=== PATIENT | female | born 1985 | race Caucasian/White ===

== ENCOUNTER 2017-05-20 11:40 | Emergency (ER) | payer OTHER ==
[~2017-05-20] VITALS: Ht 170.2 cm; Wt 91.2 kg
[~2017-05-20 11:40] MED LIST: ACET325 PO; ALBU90OI INH; ALBU90OI6 INH; ALBU90OI61 INH; AMOX500 PO; AMPDEX10; AMPDEX10CR; ARIP10; AZIT250 PO; Acular3 ML LEFTEYE; Advil200 M1 PO; CALCAVITDA; CEPH500 PO; CRUTCH3 USE; CYCL10; Cleocin HCl300 MG PO; DOXY100 PO; FLUSAL1005; FOLI1 PO; FOLI400 PO; HYDGUAL120 PO; HYDPAM25 PO; IBUP600 PO; IBUP800 PO; Keflex500 MG PO; LAMO100 PO; METPHE20 PO; METR70GEL VAG; MORP30ER; MULVITMINE PO; MUPI2TO TOP; NAPR500 PO; NICO14TP TOP; OXYACE5T PO; OXYC10ER; OXYC5 PO; PRED20 PO; PRODEXEL PO; Percocet 5-3251 EACH PO; Prednisone20 MG PO; QUET100 PO; RANI150 PO; RXERYTOPTH OS; RXHYDGUAS PO; RXOXYACE PO; SPACE CHAMBER1 EACH MC; SULTRIDS PO; SULTRISS PO; TOPI100; TOPI25; TRAM50 PO; VALA500 PO; VENL75; Verotin-Gr Cap1 EACH PO; Zithromax250 MG PO
[2017-05-20 13:08] LABS: Influenza A Negative (NEGATIVE); Influenza B Negative (NEGATIVE)
[2017-05-20] MEDS ORDERED: Flonase 0.05% N16 GM (13:32)
[2017-05-20] MEDS ORDERED: Pseudoephedrine30 MG PO (13:33)
[2017-05-20] MEDS ORDERED: Zithromax250 MG PO (13:33)
[2018-02-26] MEDS ORDERED: Zanaflex4 MG PO (18:01)
[2018-02-26] MEDS ORDERED: METPHE20 PO (18:01)
[2018-02-26] MEDS ORDERED: BUPR150ER PO (18:01)
[2018-02-26] MEDS ORDERED: LAMO100 PO ×2 (18:01→18:02)
[2018-02-26] MEDS ORDERED: LAMO25 PO (18:02)
[2018-02-26] MEDS ORDERED: Percocet 10-321 EACH PO (18:36)
[2018-02-26] MEDS ORDERED: BACI500TO TOP (18:36)
[2018-02-26] MEDS ORDERED: IBUP800 PO (18:36)
[2018-03-01] MEDS ORDERED: Percocet 5-3251 EACH PO (19:18)
== END 2017-05-20 13:42 | disposition home or self-care (01) ==
LOC: ER 11:40
PROVIDERS: Physician Assistant
DX: R05 Cough (principal); R09.81 Nasal congestion; J45.909 Unspecified asthma, uncomplicated; F31.9 Bipolar disorder, unspecified; F90.9 Attention-deficit hyperactivity disorder, unspecified type; G40.909 Epilepsy, unspecified, not intractable, without status epilepticus; Z88.8 Allergy status to other drugs, medicaments and biological substances; Z79.899 Other long term (current) drug therapy; Z87.891 Personal history of nicotine dependence
CPT/HCPCS: 87804; 99283

== ENCOUNTER → 2017-06-13 | Outpatient (CLI) | payer OTHER ==
[~2017-06-13] MED LIST changes: +BACI500TO TOP; +BUPR150ER PO; +Flonase 0.05% N16 GM; +IBUP400 PO; +LAMO25 PO; +Percocet 10-321 EACH PO; +Pseudoephedrine30 MG PO; +Zanaflex4 MG PO
== END ==
LOC: LAB 14:44
DX: Z33.1 Pregnant state, incidental (principal)
CPT/HCPCS: 87081; 87653

== ENCOUNTER 2017-07-02 05:15 | Inpatient (IN) | payer OTHER ==
[~2017-07-02] VITALS: Ht 167.6 cm; Wt 93.2 kg
[~2017-07-02 05:15] MED LIST changes: -BACI500TO TOP; -BUPR150ER PO; -IBUP400 PO; -LAMO25 PO; -Percocet 10-321 EACH PO; -Zanaflex4 MG PO
[2017-07-02] MEDS ORDERED: RANI150 PO (05:37)
[2017-07-02 05:43] LABS: BASOPHILS ABSOLUTE AUTO 0.04 K/mm3 (0.00-0.23); BASOPHILS PERCENT AUTO 0 % (0-2); EOSINOPHILS ABSOLUTE AUTO 0.22 K/mm3 (0.00-0.68); EOSINOPHILS PERCENT AUTO 2 % (0-6); Hematocrit 38.4 % (33.0-51.0); IMMATURE GRAN ABSOLUTE AUTO 0.07 K/mm3 (0.00-0.10); IMMATURE GRAN PERCENT AUTO 1 % (0-1); LYMPHOCYTES ABSOLUTE AUTO 2.98 K/mm3 (0.84-5.20); LYMPHOCYTES PERCENT AUTO 29 % (21-46); MONOCYTES ABSOLUTE AUTO 0.92 K/mm3 (0.16-1.47); MONOCYTES PERCENT AUTO 9 % (4-13); Mean Corpuscular HGB 28.3 pg (26.0-34.0); Mean Corpuscular HGB Conc 33.9 g/dL (31.5-36.5); Mean Corpuscular Volume 84 fL (80-100); Mean Platelet Volume 11.8 fL (9.1-12.4); NEUTROPHILS PERCENT AUTO 59 % (41-73); Platelet Count 196 K/mm3 (150-400); RDW Coefficient Variation 13.1 % (11.7-14.2); RDW Standard Deviation 39.9 fL (35.1-46.3); Red Blood Cell Count 4.59 M/mm3 (3.80-5.20); White Blood Cell Count 10.43 K/mm3 (4.00-11.30)
[2017-07-02 06:17] LABS: U Amphetamine Screen Not Detected; U Barbituate Screen Not Detected; U Benzodiazapine Screen Not Detected; U Buprenorphine Screen Not Detected; U Cannabinoids Screen Not Detected; U Cocaine Screen Not Detected; U Methadone Screen Not Detected; U Methamphetamine Screen Not Detected; U Opiates Screen Not Detected; U Oxycodone Screen Not Detected; U Phencyclidine Screen Not Detected; U Propoxyphene Screen Not Detected
[2017-07-03 05:49] LABS: Hematocrit 35.7 % (33.0-51.0); Hemoglobin 12.1 g/dL (11.5-16.0); Mean Corpuscular HGB Conc 33.9 g/dL (31.5-36.5); Mean Corpuscular Volume 86 fL (80-100); Mean Platelet Volume 11.9 fL (9.1-12.4); Platelet Count 180 K/mm3 (150-400); RDW Coefficient Variation 13.2 % (11.7-14.2); RDW Standard Deviation 41.1 fL (35.1-46.3); Red Blood Cell Count 4.17 M/mm3 (3.80-5.20); White Blood Cell Count 10.83 K/mm3 (4.00-11.30)
[2018-02-26] MEDS ORDERED: Zanaflex4 MG PO (18:01)
[2018-02-26] MEDS ORDERED: BUPR150ER PO (18:01)
[2018-02-26] MEDS ORDERED: LAMO100 PO ×2 (18:01→18:02)
[2018-02-26] MEDS ORDERED: METPHE20 PO (18:01)
[2018-02-26] MEDS ORDERED: LAMO25 PO (18:02)
[2018-02-26] MEDS ORDERED: Percocet 10-321 EACH PO (18:36)
[2018-02-26] MEDS ORDERED: IBUP800 PO (18:36)
[2018-02-26] MEDS ORDERED: BACI500TO TOP (18:36)
[2018-03-01] MEDS ORDERED: Percocet 5-3251 EACH PO (19:18)
== END 2017-07-03 13:11 | disposition home or self-care (01) | DRG 775 ==
LOC: OBS 05:15 → BC 05:16 → OBS 05:24 → BC 05:27
PROVIDERS: Advanced Practice Midwife
PROC: 10E0XZZ Delivery of Products of Conception, External Approach (ICD-10-PCS; principal; 2017-07-02)
PROC: 0HQ9XZZ Repair Perineum Skin, External Approach (ICD-10-PCS; 2017-07-02)
DX: O99.824 Streptococcus B carrier state complicating childbirth (principal); Z37.0 Single live birth; O70.0 First degree perineal laceration during delivery; Z3A.39 39 weeks gestation of pregnancy; Z87.891 Personal history of nicotine dependence; Z86.14 Personal history of Methicillin resistant Staphylococcus aureus infection; Z88.2 Allergy status to sulfonamides
CPT/HCPCS: 36415; 85025; 85027; J0290; J1885; J2590; J7120

== ENCOUNTER 2017-08-07 23:46 | Emergency (ER) | payer OTHER ==
[2018-02-26] MEDS ORDERED: METPHE20 PO (18:01)
[2018-02-26] MEDS ORDERED: Zanaflex4 MG PO (18:01)
[2018-02-26] MEDS ORDERED: BUPR150ER PO (18:01)
[2018-02-26] MEDS ORDERED: LAMO100 PO ×2 (18:01→18:02)
[2018-02-26] MEDS ORDERED: LAMO25 PO (18:02)
[2018-02-26] MEDS ORDERED: BACI500TO TOP (18:36)
[2018-02-26] MEDS ORDERED: Percocet 10-321 EACH PO (18:36)
[2018-02-26] MEDS ORDERED: IBUP800 PO (18:36)
[2018-03-01] MEDS ORDERED: Percocet 5-3251 EACH PO (19:18)
== END 2017-08-07 23:57 | disposition left against medical advice (07) ==
LOC: ER 23:46
DX: Z53.21 Procedure and treatment not carried out due to patient leaving prior to being seen by health care provider (principal)

== ENCOUNTER 2017-08-26 23:39 | Emergency (ER) | payer OTHER ==
[~2017-08-26] VITALS: Ht 167.6 cm; Wt 85.3 kg
[2017-08-26] MEDS ORDERED: CEPH500 PO (23:55)
[2017-08-27] MEDS ORDERED: IBUP400 PO (15:20)
== END 2017-08-27 00:21 | disposition home or self-care (01) ==
LOC: ER 23:39
DX: L03.313 Cellulitis of chest wall (principal); Z88.8 Allergy status to other drugs, medicaments and biological substances; Z79.899 Other long term (current) drug therapy; Z79.2 Long term (current) use of antibiotics; J45.909 Unspecified asthma, uncomplicated; Z87.891 Personal history of nicotine dependence
CPT/HCPCS: 99282

== ENCOUNTER 2017-08-27 14:24 | Emergency (ER) | payer OTHER ==
[~2017-08-27] VITALS: Ht 167.6 cm; Wt 85.3 kg
[2017-08-27] MEDS ORDERED: IBUP400 PO (15:20)
[2017-08-27 16:16] LABS: BASOPHILS ABSOLUTE AUTO 0.05 K/mm3 (0.00-0.23); BASOPHILS PERCENT AUTO 1 % (0-2); EOSINOPHILS ABSOLUTE AUTO 0.85 K/mm3 (0.00-0.68); EOSINOPHILS PERCENT AUTO 8 % (0-6); Hematocrit 41.8 % (33.0-51.0); Hemoglobin 13.3 g/dL (11.5-16.0); IMMATURE GRAN ABSOLUTE AUTO 0.02 K/mm3 (0.00-0.10); IMMATURE GRAN PERCENT AUTO 0 % (0-1); LYMPHOCYTES PERCENT AUTO 32 % (21-46); MONOCYTES ABSOLUTE AUTO 0.89 K/mm3 (0.16-1.47); MONOCYTES PERCENT AUTO 9 % (4-13); Mean Corpuscular HGB 27.3 pg (26.0-34.0); Mean Corpuscular HGB Conc 31.8 g/dL (31.5-36.5); Mean Corpuscular Volume 86 fL (80-100); Mean Platelet Volume 11.5 fL (9.1-12.4); NEUTROPHILS ABSOLUTE AUTO 5.06 K/mm3 (1.96-9.15); NEUTROPHILS PERCENT AUTO 50 % (41-73); Platelet Count 306 K/mm3 (150-400); RDW Coefficient Variation 14.6 % (11.7-14.2); RDW Standard Deviation 46.3 fL (35.1-46.3); Red Blood Cell Count 4.87 M/mm3 (3.80-5.20); White Blood Cell Count 10.17 K/mm3 (4.00-11.30)
[2017-08-27 16:38] LABS: Alanine Aminotransfer (ALT/SGP 27 U/L (12-78); Albumin, Blood 3.7 g/dL (3.4-5.0); Alk Phos 128 U/L (50-136); Anion Gap 3 mmol/L (6-16); Aspartate Aminotrans (AST/SGOT 23 U/L (12-37); Bilirubin, Total 0.5 mg/dL (0.1-1.0); Blood Urea Nitrogen 16 mg/dL (8-24); CO2, Blood 29 mmol/L (21-32); Chloride, Blood 108 mmol/L (98-108); Creatinine, Blood 0.89 mg/dL (0.40-1.00); Globulin, Blood 3.8 g/dL (2.2-4.0); Glomerular Filtration Rate >60 (60-); Glucose, Blood 85 mg/dL (70-99); Potassium, Blood 3.8 mmol/L (3.5-5.5); Sodium, Blood 140 mmol/L (136-145); Total Protein, Blood 7.5 g/dL (6.4-8.2)
== END 2017-08-27 18:20 | disposition home or self-care (01) ==
LOC: ER 14:24
PROVIDERS: Physician Assistant
DX: N93.9 Abnormal uterine and vaginal bleeding, unspecified (principal); Z88.8 Allergy status to other drugs, medicaments and biological substances; Z79.899 Other long term (current) drug therapy; F31.9 Bipolar disorder, unspecified; F41.9 Anxiety disorder, unspecified; F90.9 Attention-deficit hyperactivity disorder, unspecified type; J45.909 Unspecified asthma, uncomplicated; Z87.891 Personal history of nicotine dependence
CPT/HCPCS: 36415; 76830; 80053; 85025; 99284

== ENCOUNTER → 2023-12-15 | Outpatient (CLI) | payer OTHER ==
[~2023-12-15] MED LIST changes: +BACI500TO TOP; +BUPR150ER PO; +IBUP400 PO; +LAMO25 PO; +Percocet 10-321 EACH PO; +Zanaflex4 MG PO
[2023-12-15 14:32] LABS: Source, Urine Clean Catch
[2023-12-15 14:42] LABS: Bacteria Few /hpf; Red Blood Cells, Urine Not Seen /hpf (0-2); Squamous Epithelial Cells Many /hpf (Few)
[2023-12-18 22:07] LABS: APTIMA MEDIA TYPE Unisex Swab; C. TRACHOMATIS BY TMA Negative (Negative); N. GONORRHOEAE BY TMA Negative (Negative); SPECIMEN SOURCE Vaginal; T. VAGINALIS BY TMA Positive (Negative)
== END | disposition home or self-care (01) ==
LOC: LAB 14:30 → LAB SHORT 14:30
PROVIDERS: Internal Medicine
DX: N89.8 Other specified noninflammatory disorders of vagina (principal); N39.0 Urinary tract infection, site not specified
CPT/HCPCS: 81015; 87086; 87491; 87591; 87661

== ENCOUNTER 2024-05-31 09:38 | Emergency (ER) | payer OTHER ==
[~2024-05-31] VITALS: Ht 160 cm; Wt 63.5 kg
[2024-05-31 10:47] VITALS: BP 135/72
== END 2024-05-31 11:02 | disposition left against medical advice (07) ==
LOC: ER 09:38
DX: R22.0 Localized swelling, mass and lump, head (principal); Z53.21 Procedure and treatment not carried out due to patient leaving prior to being seen by health care provider
CPT/HCPCS: 99281